=== PATIENT | male | born 1945 | race Caucasian/White ===

== ENCOUNTER → 2017-11-13 | Outpatient (CLI) | payer OTHER ==
[~2017-11-13] VITALS: Ht 182.9 cm; Wt 106.6 kg
[~2017-11-13] MED LIST: LOPRESSOR50 PO; OCUVITE LUTEIN1 EAC1 PO; PRADAXA150 MG PO; PRESERVISION A1 EAC2 PO; VITAMIN D1000 UNI1 PO
--- NOTE | ~2017-11-13 | S ---
[facility] [place] [address] SURGICAL PATH RPT PROCEDURE Name: APOLLO RICH Rj Room #: REG [facility].#: [id number] Admission: 11/13/17 Date of : 45 Discharge: Report #: [id number] Path Case #: [id number] PATHOLOGY REPORT COLLECTION DATE: 11/13/2017 RECEIVED DATE: 11/13/2017 SUBMITTING PHYS: Dr. Billy Mcgill OTHER PHYS: SPECIMEN(S) RECEIVED: A.Ascending polyp B.Sigmoid polyp C.Rectal polyp * * * * * * * * * * * * FINAL DIAGNOSIS: A. "Ascending polyp," biopsy: - Tubular adenoma; no high-grade dysplasia. B. "Sigmoid polyp," biopsy: - Tubular adenoma; no high-grade dysplasia. C. "Rectal polyp," biopsy: - Hyperplastic polyp. (CLW:; 11/16/2017) PATHOLOGIST: Carly Agrawal M.D. REPORT ELECTRONICALLY SIGNED BY: Carly Agrawal M.D. DATE/TIME: 11/16/2017 14:33 * * * * * * * * * * * * GROSS PATHOLOGY: A. Received in formalin labeled "Apollo Rich, polyp at ascending colon," is a segment of montez soft tissue measuring 0.4 x 0.4 x 0.1 cm in maximum dimension. The specimen is submitted entirely in cassette A1. B. The specimen is received in formalin, labeled "Apollo Rich, polyp at sigmoid colon," and consists of 3 fragments of montez soft tissue measuring between 0.6 x 0.2 x 0.1 cm and 0.2 x 0.1 x 0.1 cm. They are entirely submitted in cassette B1. C. Received in formalin labeled "Apollo Rich, polyp at rectum," is a segment of montez soft tissue measuring 0.2 x 0.2 x 0.1 cm in maximum dimension. The specimen is submitted entirely in cassette C1. (SDY; 11/13/2017) CLINICAL HISTORY: History polyps [address] [address] SURGICAL PATH RPT PROCEDURE Name: APOLLO RICH Rj Room #: [facility].#: [id number] Admission: 11/13/17 Date of : 45 Discharge: Report #: [id number] Path Case #: [id number] Colon polyps INITIAL CPT CODE(S): A; 99799 B; 94420 C; 53894 Professional services performed by [facility] at [address] , [place] [address] Technical services performed by [facility] at [address] [place] [address], [facility] [address] [address]. [facility] [address] [place] [address] PHONE: [phone] DIRECTOR: Albert Zuniga M.D. * * * END OF REPORT * * *
--- NOTE | ~2017-11-13 | P ---
[facility] [place] [address] PROCEDURE REPORT Name: VINHBRADLEYKENN Rj Room #: REG [facility]#: [id number] Admission: 11/13/17 Attend Phys: Billy Jasso Discharge: Date of : 45 Report #: [id number] THIS REPORT FOR: //name// CC: Billy Mcgill [facility] physician/PCP DATE OF SERVICE: 11/13/2017 PROCEDURE PERFORMED: Colonoscopy with biopsies. HISTORY OF PRESENT ILLNESS: The patient is a 72-year-old male who presents today for colonoscopy, possible history of polyps. He does have a family history of colon cancer. He denies any symptoms. PROCEDURE: The risks and benefits of the procedure were explained to the patient, those risks including, but not limited to bleeding, perforation, and the risk of sedation. He understood these risks and gave informed consent. Sedation was given using propofol per anesthesia. Next, a digital rectal exam was initially performed, which was normal. Next, using a standard Fujinon colonoscope, the scope was placed in the patient's anus and advanced under direct vision to the cecum. The overall prep was excellent. The cecum and ileocecal valve were normal in appearance. In the ascending colon, there was a 4-mm sessile polyp, this was removed with cold forceps, otherwise normal. Transverse and descending colon were normal. In the sigmoid colon, a 3-mm sessile polyp, also removed with cold forceps, otherwise normal. In the rectum, a small 3-mm sessile polyp was noted, removed with cold forceps. Also, on retroflexion, nonbleeding internal hemorrhoids were noted. The scope was then withdrawn and the procedure terminated. The patient tolerated the procedure well. IMPRESSION: 1. Three small colonic polyps. 2. Internal hemorrhoids. 3. Otherwise, normal colonoscopy. RECOMMENDATIONS: 1. Await biopsy results. 2. Repeat colonoscopy in 5 years. Thank you for allowing me to participate in his care. He does not have a family physician. <ELECTRONICALLY SIGNED> By: Billy Mcgill MD 11/13/17 [id number] Billy Mcgill MD /nt
== END | disposition home or self-care (01) ==
LOC: GI 07:47
DX: K63.5 Polyp of colon (principal); K62.1 Rectal polyp; K64.8 Other hemorrhoids; G47.33 Obstructive sleep apnea (adult) (pediatric); F41.8 Other specified anxiety disorders; I48.91 Unspecified atrial fibrillation; Z87.891 Personal history of nicotine dependence; Z98.890 Other specified postprocedural states; Z79.899 Other long term (current) drug therapy
CPT/HCPCS: 62110; 62900

== ENCOUNTER → 2020-05-15 | Outpatient (CLI) | payer OTHER | LOC: SJCVCIMAG 09:21 | PROVIDERS: ATTEND Internal Medicine Cardiovascular Disease | DX: I08.1 Rheumatic disorders of both mitral and tricuspid valves (principal); I48.21 Permanent atrial fibrillation ==

== ENCOUNTER → 2021-05-28 | Outpatient (CLI) | payer OTHER | LOC: SJCVC 16:30 | PROVIDERS: ATTEND Internal Medicine Cardiovascular Disease | DX: R94.31 Abnormal electrocardiogram [ECG] [EKG] (principal); I45.10 Unspecified right bundle-branch block; I48.21 Permanent atrial fibrillation; E66.9 Obesity, unspecified; G47.33 Obstructive sleep apnea (adult) (pediatric); Z79.899 Other long term (current) drug therapy; Z87.891 Personal history of nicotine dependence ==